=== PATIENT | male | born 1955 | race Caucasian/White ===

== ENCOUNTER 2020-09-28 06:47 | Emergency (ER) | payer BC ==
[~2020-09-28] VITALS: Ht 188 cm; Wt 86.3 kg
[2020-09-28] MEDS ORDERED: OMEPRAZOLE10 MG PO (07:05)
[2020-09-28] MEDS ORDERED: LEXAPRO20 MG PO (07:05)
[2020-09-28] MEDS ORDERED: TRIGLIDE160 MG PO (07:05)
[2020-09-28] MEDS ORDERED: NORVASC5 M1 PO (07:06)
[2020-09-28 07:22] LABS: HEMATOCRIT 38.2 % (39.0-50.0); HEMOGLOBIN 13.1 g/dl (14.0-18.0); IMMATURE GRANULOCYTES 0.8 % (0.0-5.0); MEAN CELL VOLUME 95.3 fL CALC (80.0-100.0); MEAN CORPUSCULAR HGB 32.7 pG CALC (26.0-32.0); MEAN CORPUSCULAR HGB CONC 34.3 g/dL CAL (32.0-36.0); NEUT# 7.9 thou/uL (1.82-7.42); RED BLOOD COUNT 4.01 mill/uL (4.70-6.10); RED CELL DISTRI WIDTH 12.2 % (11.5-15.5)
[2020-09-28] MEDS ORDERED: TRAZODONE100 MG PO (07:33)
[2020-09-28] MEDS ORDERED: LORAZEPAM0.5 MG PO (07:34)
[2020-09-28 07:42] LABS: ALBUMIN 4.3 g/dL (3.2-5.0); ALKALINE PHOSPHATASE 54 u/l (38-126); ANION GAP 12 (6-22 (CALC)); BILIRUBIN, TOTAL 0.7 mg/dL (0.0-1.4); BUN 10 mg/dL (8-23); BUN/CREATININE RATIO 9 (12-20 (CALC)); CARBON DIOXIDE 25 mmol/l (22-30); CHLORIDE 104 mmol/l (95-108); CREATININE 1.1 mg/dL (0.7-1.3); ETHYL ALCOHOL 0 mg/dl (0-30); GFR > 60 ML/MIN (>=60 (CALC)); GFR FOR AFR.AMER. > 60 ML/MIN (>=60 (CALC)); POTASSIUM 3.9 mmol/l (3.5-5.1); SGOT/AST 43 u/l (19-48); SODIUM 138 mmol/l (137-146)
[2020-09-28 10:24] VITALS: BP 156/87
[2020-09-28 10:57] LABS: URINE BILIRUBIN - DIPSTICK NEGATIVE (NEGATIVE); URINE BLOOD DIPSTICK SMALL (NEGATIVE); URINE COLOR YELLOW; URINE GLUCOSE - DIPSTICK 250 mg/dL (NEGATIVE); URINE KETONE TRACE mg/dL (NEGATIVE); URINE LEUK ESTERASE NEGATIVE (NEGATIVE); URINE NITRITE - DIPSTICK NEGATIVE (Negative); URINE PROTEIN - DIPSTICK NEGATIVE (NEG-TRACE); URINE UROBILINOGEN - DIPSTICK 0.2 E.U./dL (0.2)
[2020-09-28 11:03] LABS: URINE EPITHELIAL CELLS RARE EPI/hpf (0-FEW); URINE RBC 0-2 RBC/hpf (0-5)
== END 2020-09-28 11:07 | disposition short-term general hospital (02) | DRG 897 ==
LOC: ED 06:47
PROVIDERS: Student in an Organized Health Care Education/Training Program
PROC: 0T9B70Z Drainage of Bladder with Drainage Device, Via Natural or Artificial Opening (ICD-10-PCS; principal; 2020-09-28)
DX: F10.239 Alcohol dependence with withdrawal, unspecified (principal); G40.89 Other seizures; S01.512A Laceration without foreign body of oral cavity, initial encounter; I10 Essential (primary) hypertension; K21.9 Gastro-esophageal reflux disease without esophagitis; F32.9 Major depressive disorder, single episode, unspecified; F41.9 Anxiety disorder, unspecified; F17.210 Nicotine dependence, cigarettes, uncomplicated; X58.XXXA Exposure to other specified factors, initial encounter; Z20.828 Contact with and (suspected) exposure to other viral communicable diseases
CPT/HCPCS: J1953; J2060; J3475

== ENCOUNTER 2021-07-26 18:50 | Emergency (ER) | payer BC ==
[~2021-07-26] VITALS: Ht 188 cm; Wt 100.0 kg
[~2021-07-26 18:50] MED LIST: LEXAPRO20 MG PO; LORAZEPAM0.5 MG PO; NORVASC5 M1 PO; OMEPRAZOLE10 MG PO; TRAZODONE100 MG PO; TRIGLIDE160 MG PO
[2021-07-26 19:21] LABS: IMMATURE GRANULOCYTES 0.4 % (0.0-5.0); MEAN CELL VOLUME 98.1 fL CALC (80.0-100.0); MEAN CORPUSCULAR HGB 35.6 pG CALC (26.0-32.0); MEAN CORPUSCULAR HGB CONC 36.3 g/dL CAL (32.0-36.0); NEUT# 2.59 thou/uL (1.82-7.42); RED BLOOD COUNT 2.67 mill/uL (4.70-6.10)
[2021-07-26 19:25] LABS: HEMATOCRIT 26.2 % (39.0-50.0); HEMOGLOBIN 9.5 g/dl (14.0-18.0)
[2021-07-26 19:30] LABS: ALBUMIN 3.5 g/dL (3.2-5.0); BILIRUBIN, TOTAL 0.5 mg/dL (0.0-1.4); BUN 12 mg/dL (8-23); BUN/CREATININE RATIO 10 (12-20 (CALC)); CARBON DIOXIDE 23 mmol/l (22-30); CHLORIDE 99 mmol/l (95-108); CPK 121 u/l (52-200); CREATININE 1.2 mg/dL (0.7-1.3); ETHYL ALCOHOL 185 mg/dl (0-30); GFR > 60 ML/MIN (>=60 (CALC)); GFR FOR AFR.AMER. > 60 ML/MIN (>=60 (CALC)); SODIUM 135 mmol/l (137-146); TOTAL PROTEIN 6.2 g/dL (6.3-8.2)
[2021-07-26 19:32] LABS: ALKALINE PHOSPHATASE 113 u/l (38-126); ANION GAP 16 (6-22 (CALC)); POTASSIUM 3.1 mmol/l (3.5-5.1); SGOT/AST 136 u/l (19-48)
[2021-07-26 19:33] LABS: MAGNESIUM 0.3 mg/dL (1.6-2.3)
[2021-07-26 19:50] LABS: ACT PARTIAL THROMBO TIME 24.3 SECONDS (20.0-32.5); INTERNATIONAL NORMALIZED RATIO 1.2 RATIO (0.7-1.3); PROTHROMBIN TIME 12.4 SECONDS (9.0-12.5)
[2021-07-26] MEDS ORDERED: K-DUR/KLOR-CON20 MEQ PO (21:37)
[2021-07-26] MEDS ORDERED: MAGNESIUM OXID400 M1 PO (21:37)
[2021-07-26 21:41] VITALS: BP 108/70
== END 2021-07-26 21:56 | disposition left against medical advice (07) | DRG 312 ==
LOC: ED 18:50
PROVIDERS: Family Medicine
DX: R55 Syncope and collapse (principal); E87.6 Hypokalemia; E83.42 Hypomagnesemia; F10.129 Alcohol abuse with intoxication, unspecified; I10 Essential (primary) hypertension; K21.9 Gastro-esophageal reflux disease without esophagitis; F17.210 Nicotine dependence, cigarettes, uncomplicated; Z91.19 Patient's noncompliance with other medical treatment and regimen; Z20.822 Contact with and (suspected) exposure to COVID-19
CPT/HCPCS: Q9967

== ENCOUNTER 2022-06-11 07:45 | Emergency (ER) | payer MEDICARE, BC ==
[~2022-06-11] VITALS: Ht 188 cm; Wt 84.8 kg
[2022-06-11] VITALS (8 sets, daily range): BP systolic 131–154; BP diastolic 83–114
[~2022-06-11 07:45] MED LIST changes: +K-DUR/KLOR-CON20 MEQ PO; +MAGNESIUM OXID400 M1 PO
[2022-06-11] MEDS ORDERED: TEMAZEPAM30 MG PO (08:05)
[2022-06-11] MEDS ORDERED: LACOSAMIDE200 MG PO (08:06)
[2022-06-11] MEDS ORDERED: ATENOLOL50 MG PO (08:07)
[2022-06-11 08:49] LABS: HEMATOCRIT 35.4 % (39.0-50.0); HEMOGLOBIN 13.1 g/dl (14.0-18.0); IMMATURE GRANULOCYTES 0.6 % (0.0-5.0); MEAN CORPUSCULAR HGB 34.2 pG CALC (26.0-32.0); NEUT# 6.79 thou/uL (1.82-7.42); RED BLOOD COUNT 3.83 mill/uL (4.70-6.10); RED CELL DISTRI WIDTH 11.7 % (11.5-15.5)
[2022-06-11 08:51] LABS: MEAN CELL VOLUME 92.4 fL CALC (80.0-100.0)
[2022-06-11 09:16] LABS: BILIRUBIN, TOTAL 0.4 mg/dL (0.0-1.4); POTASSIUM 3.6 mmol/l (3.5-5.1)
[2022-06-11 09:17] LABS: ALBUMIN 4.7 g/dL (3.2-5.0); TOTAL PROTEIN 7.8 g/dL (6.3-8.2)
[2022-06-11] MEDS ORDERED: HYDROCO/APAP1 TA9 PO (09:28)
[2022-06-11] MEDS ORDERED: ZOFRAN4 MG/TAB PO (09:28)
== END 2022-06-11 11:10 | disposition home or self-care (01) ==
LOC: ED 07:45
PROVIDERS: Internal Medicine
DX: K85.90 Acute pancreatitis without necrosis or infection, unspecified (principal); E87.6 Hypokalemia; N28.9 Disorder of kidney and ureter, unspecified; I10 Essential (primary) hypertension; K21.9 Gastro-esophageal reflux disease without esophagitis; F17.210 Nicotine dependence, cigarettes, uncomplicated